=== PATIENT | male | born 1995 | race Caucasian/White ===

== ENCOUNTER 2017-06-13 22:21 | Emergency (ER) | payer SELFPAY ==
[~2017-06-13] VITALS: Ht 175.3 cm; Wt 73.0 kg
[2017-06-14 02:54] VITALS: BP 129/83
== END 2017-06-14 02:56 | disposition short-term general hospital (02) ==
LOC: EME 22:21
DX: S05.91XA Unspecified injury of right eye and orbit, initial encounter (principal); S05.11XA Contusion of eyeball and orbital tissues, right eye, initial encounter; W22.8XXA Striking against or struck by other objects, initial encounter; L57.0 Actinic keratosis; H53.8 Other visual disturbances; F17.200 Nicotine dependence, unspecified, uncomplicated
CPT/HCPCS: 70480; 99281; 99285; J2270; J2405